=== PATIENT | male | born 1975 | race Caucasian/White ===

== ENCOUNTER → 2016-09-11 | Outpatient (CLI) | payer OTHER ==
--- NOTE | 2016-09-11 13:25 | RAD ---
Left hip, two views Indication: Left hip pain for 2 months. Progressively worsening. Denies injury or trauma Comparison: None Findings: there are small marginal osteophytes of the left femoral head. No cortical lucency or kirk lignment identified. No bony erosions or destructive osseous lesion identified. Findings: Early degenerative changes of the left hip. No acute skeletal abnormality. Reported By:
== END ==
LOC: RAD 10:47
PROVIDERS: ATTEND Internal Medicine
DX: M25.552 Pain in left hip (principal)
CPT/HCPCS: 73501